=== PATIENT | male | born 1945 | race Caucasian/White ===

== ENCOUNTER 2016-09-21 16:36 | Emergency (ER) | payer MEDICARE ==
[~2016-09-21] VITALS: Ht 165.1 cm; Wt 64.0 kg
[2016-09-21 16:44] VITALS: BP 117/64
== END 2016-09-21 17:39 | disposition home or self-care (01) ==
LOC: ER 16:36
DX: Z46.6 Encounter for fitting and adjustment of urinary device (principal); I11.9 Hypertensive heart disease without heart failure; I51.9 Heart disease, unspecified
CPT/HCPCS: 99282